=== PATIENT | female | born 1985 | race Caucasian/White ===

== ENCOUNTER 2022-09-03 16:00 | Outpatient (RCR) | payer OTHER, SELFPAY | END 2022-09-03 16:05 | disposition home or self-care (01) | LOC: PT 16:00 | PROVIDERS: Visit Provider Nurse Practitioner Family | DX: I89.0 Lymphedema, not elsewhere classified (principal) | CPT/HCPCS: 29580; 97140; 97162; 97164; 97597; 97760 ==